=== PATIENT | male | born 1995 | race Caucasian/White ===

== ENCOUNTER 2018-11-19 16:04 | Emergency (ER) | payer BC ==
[~2018-11-19] VITALS: Ht 170.1 cm; Wt 99.8 kg
[~2018-11-19 16:04] MED LIST: FIORICET 50-301 EACH PO; IMITREX100 MG PO
== END 2018-11-19 16:35 | disposition home or self-care (01) ==
LOC: ED 16:04
DX: M25.511 Pain in right shoulder (principal); E66.9 Obesity, unspecified; Z79.899 Other long term (current) drug therapy; X58.XXXA Exposure to other specified factors, initial encounter; Y93.89 Activity, other specified; Y92.89 Other specified places as the place of occurrence of the external cause; Y99.8 Other external cause status